=== PATIENT | female | born 1985 | race Caucasian/White ===

== ENCOUNTER 2020-02-03 14:31 | Emergency (ER) | payer SELFPAY ==
[~2020-02-03] VITALS: Ht 177.8 cm; Wt 79.4 kg
[2020-02-03] MEDS ORDERED: KETO10 PO (16:28)
[2020-02-03] MEDS ORDERED: HYDR1TAB94 PO (16:28)
[2020-02-03] MEDS ORDERED: Prednisone20 MG PO (16:28)
== END 2020-02-03 16:37 | disposition home or self-care (01) ==
LOC: ER 14:31
DX: M70.71 Other bursitis of hip, right hip (principal); M17.11 Unilateral primary osteoarthritis, right knee; M16.0 Bilateral primary osteoarthritis of hip; F17.200 Nicotine dependence, unspecified, uncomplicated
CPT/HCPCS: 73502; 73562-RT; 99283-25; A9270-GY